=== PATIENT | female | born 1995 | race Caucasian/White ===

== ENCOUNTER 2018-06-02 16:22 | Emergency (ER) | payer MEDICAID, SELFPAY ==
[2018-06-02 16:23] VITALS: BP 137/91; PULSE 80; RESP 16; TEMP 36.6; O2SAT 98; BMI 44.6
--- NOTE | 2018-06-02 16:44 | ED.VISSUMM ---
- ER Visit Summary Date of Service: 06/02/18 Chief Complaint: Right forearm burn History of Present Illness: The patient is a 22 F who is in a [employer] student. She reports that just prior to coming emergency department she had opened her oven which was 450? and the cat went to jump on this. She used her right arm to block him. However, she burned her right forearm. She has a burning pain that is 10 out of 10 severity. It is worsened by nothing and relieved by cold. She denies any paresthesias distally. Physical Examination: Vitals: Stable. Afebrile. General: Well-nourished and well-developed. Head: Normocephalic atraumatic. Neck: Supple, no lymphadenopathy. No JVD. Nontender. Cardiovascular: Regular rate and rhythm. No murmurs. Respiratory: No respiratory distress. Clear to auscultation bilaterally. Abdominal: Soft, nontender, nondistended, normal bowel sounds. No guarding, rebound, or peritoneal signs. Back: Nontender. Extremities: 10 cm x 6 cm first-degree burn to the medial side of her right forearm with approximately 4 similar by 2 cm second-degree burn in the second and her of this. She is neurovascular intact distally. Skin: Normal color, no rash. Neurologic: Alert and oriented ?3. Cranial nerves II through XII are intact. Normal strength and sensation. Psych: Normal affect. Emergency Department Course and Treatment: Patient was treated with morphine IM. She had a sterile dressing placed. Treatment Plan: Patient will be discharged with [place] for pain. She is instructed to follow-up with Dr. Gusman in 2 days for a wound check. Return to the emergency department for any worsening symptoms. Disposition: To home in improved and stable condition. Impression: 1. Second-degree burn right forearm. This note was generated with [employer] dictation software. It may contain incorrect words, spelling, and punctuation that were not noted in review of the chart prior to signing ED Disposition - Plan for ED Patient: Chief Complaint: Burn Instructions: ED Burn Thermal D 2nd Dressing Prescriptions: Naproxen [Naprosyn] 500 mg PO BID PRN #14 tablet Hydrocodone/Acetaminophen [[place] 5-325 Tablet] 1 - 2 each PO 4X/DAY PRN 3 Days #12 tablet PRN Reason: Pain Referrals: Cleopatra Gusman DO [STAFF PHYSICIAN] - 2 Days for wound check
--- NOTE | 2018-06-02 16:49 | ED.DCSUM_ITS ---
- ER Visit Summary Date of Service: 06/02/18 Chief Complaint: Right forearm burn History of Present Illness: The patient is a 22 F who is in a [employer] student. She reports that just prior to coming emergency department she had opened her oven which was 450? and the cat went to jump on this. She used her right arm to block him. However, she burned her right forearm. She has a burning pain that is 10 out of 10 severity. It is worsened by nothing and relieved by cold. She denies any paresthesias distally. Physical Examination: Vitals: Stable. Afebrile. General: Well-nourished and well-developed. Head: Normocephalic atraumatic. Neck: Supple, no lymphadenopathy. No JVD. Nontender. Cardiovascular: Regular rate and rhythm. No murmurs. Respiratory: No respiratory distress. Clear to auscultation bilaterally. Abdominal: Soft, nontender, nondistended, normal bowel sounds. No guarding, rebound, or peritoneal signs. Back: Nontender. Extremities: 10 cm x 6 cm first-degree burn to the medial side of her right forearm with approximately 4 similar by 2 cm second-degree burn in the second and her of this. She is neurovascular intact distally. Skin: Normal color, no rash. Neurologic: Alert and oriented ?3. Cranial nerves II through XII are intact. Normal strength and sensation. Psych: Normal affect. Emergency Department Course and Treatment: Patient was treated with morphine IM. She had a sterile dressing placed. Treatment Plan: Patient will be discharged with [place] for pain. She is instructed to follow-up with Dr. Gusman in 2 days for a wound check. Return to the emergency department for any worsening symptoms. Disposition: To home in improved and stable condition. Impression: 1. Second-degree burn right forearm. This note was generated with [employer] dictation software. It may contain incorrect words, spelling, and punctuation that were not noted in review of the chart prior to signing ED Disposition - Plan for ED Patient: Chief Complaint: Burn Instructions: ED Burn Thermal D 2nd Dressing Prescriptions: Naproxen [Naprosyn] 500 mg PO BID PRN #14 tablet Hydrocodone/Acetaminophen [[place] 5-325 Tablet] 1 - 2 each PO 4X/DAY PRN 3 Days # 12 tablet PRN Reason: Pain Referrals: Cleopatra Gusman DO [STAFF PHYSICIAN] - 2 Days for wound check
[2018-06-02] MEDS: morphine 10 MG/ML Syringe 8 MG IM (17:22)
== END 2018-06-02 17:56 | disposition home or self-care (01) ==
PROVIDERS: Emergency Provider Emergency Medicine
DX: T22.211A Burn of second degree of right forearm, initial encounter (principal); X15.0XXA Contact with hot stove (kitchen), initial encounter; Y93.89 Activity, other specified; J45.909 Unspecified asthma, uncomplicated; Z79.899 Other long term (current) drug therapy
CPT/HCPCS: 96372; 99282

== ENCOUNTER 2019-01-19 07:04 | Emergency (ER) | payer MEDICAID, SELFPAY ==
[2019-01-19 07:05] VITALS: BP 120/72; PULSE 116; RESP 18; TEMP 38.2; O2SAT 99; BMI 45.3
--- NOTE | 2019-01-19 07:18 | ED.VIS.GEN ---
History of Present Illness Chief Complaint: Headache Detail of Chief Complaint: Nausea, vomiting and diarrhea Informant: Patient, Friend Onset: Days - Onset of illness 3 days ago Context: Sudden Onset Timing: Continuous Quality: Myalgias, arthralgias, intermittent abdominal pain Location: Generalized Current Severity: Moderate Maximum Severity: Severe Worsened by: Nothing in particular Relieved by: Nothing Associated Symptoms: Fever and chills and bifrontal headache Narrative: Patient is a 23-year-old who presents to the emerge department with bifrontal headache. Upon further questioning patient has been ill for the past 3 days with migratory generalized abdominal pain described as crampy with nausea, vomiting diarrhea. Patient does have history of irritable bowel syndrome. Patient is concerned because she got maneuver and unpasteurized milk in her mouth this weekend. She was ill apparently before that. She denies photophobia. She does complain of neck pain but does not have neck stiffness. She reports left ear pain. She also reports eye pain with redness. Patient states she had an asthma attack with significant coughing and passed out. She does report thirst, dry mouth and orthostatic symptoms. She denies ill contacts. She has not taken an antibiotic in the past month. She denies blood or mucus in her stool. She does report decreased urine output. She denies rash. Prior similar symptoms: No Recent Illness/Hospitalization: No - Past Medical History (1) History of irritable bowel syndrome Status: Acute Past Medical History - Allergies and Home Meds Allergies/Adverse Reactions: Allergies methylphenidate [From Ritalin] Allergy (Verified 01/19/19 07:07) Jarred Primary Care Physician: [facility] Doctor,Out of [NON-STAFF] - Surgical History: no surgical history Lives: With Family Smoking Status: Never smoker Alcohol: None Review of Systems General: Reports: Chills, Fever, Malaise, Subjective. Denies: Sweats, Weight loss Eyes: Reports: - - She denies photophobia.. Denies: Visual changes - bilaterally, Blurred Vision - bilaterally, Diplopia ENT: Reports: Left ear pain, Rhinorrhea. Denies: Right ear pain, Sore throat Cardiovascular: Denies: Chest pain, Palpitations Respiratory: Reports: Cough. Denies: Dyspnea, Sputum, Dyspnea on exertion, Orthopnea, Paroxysmal nocturnal dyspnea Gastrointestinal: Reports: Abdominal pain, Nausea, Vomiting, Diarrhea. Denies: Melena, Hematochezia Genitourinary: Denies: Dysuria, Hematuria, Frequency Musculoskeletal: Reports: Myalgias, Arthralgias, Neck pain, Back pain. Denies: Swelling Skin: Denies: Rash Neurological: Reports: Headache, Weakness. Denies: Parasthesia, Numbness Hematologic: Denies: Easy bruising, Easy bleeding Allergy: Denies: Uticaria Physical Exam Vital Signs/Narrative: Vital Signs Temp Pulse Resp BP Pulse Ox 01/19/19 07:05 100.7 F H 116 H 18 120/72 99 Inital Vital Signs reviewed: Yes General: Well nourished, Well developed, Obese, - - Patient appears uncomfortable and ill. She does not appear toxic or in significant distress. Head: Normocephalic, Atraumatic Eyes: Perrl, EOMI, - - Subconjunctival hemorrhage noted right eye temporal side. Negative for: Pale conjunctiva, Scleral icterus ENT: TM's clear, Dry mucous membranes. Negative for: No rhinorrhea, Sinus tenderness Neck: Supple, Nontender, No lymphadenopathy, No JVD Cardiovascular: Regular rhythm, No murmurs, Normal S1, Normal S2, Tachycardia Respiratory: No distress, CTA bilaterally, Chest nontender Abdomen: Soft, Nontender, Nondistended, Normal bowel sounds, No masses Back: Nontender, Normal Inspection Extremities: Nontender, No edema Skin: Normal color, No rash. Negative for: Cyanosis, Jaundice Neurological: Alert, Oriented x3, Cranial nerves II-XII grossly intact, Normal Strength, Normal Sensation Psychological: Normal affect Diagnostic/Tx/Re-eval - Rhythm Strip Rhythm Strip: Sinus Rhythm Rate: 110 Ectopy: None - Medical Decision Making With onset of illness 3 days ago with significant amount of vomiting diarrhea and patient reported orthostatic symptoms will obtain basic medical panel to assess potassium, CO2 and anion gap as well as renal function. She received 1 L of normal saline wide open. She will receive Zofran for her nausea and vomiting. Will then administer Bentyl for the cramping pain and Imodium for diarrhea. Patient also received Tylenol for her elevated temperature. In light of her complaint of myalgias, arthralgias, nasal congestion, cough and nausea with vomiting diarrhea findings are consistent with viral illness and would explain patient's headache. Patient was informed of results. She did receive Tylenol, Bentyl and Imodium. She has passed p.o. challenge. She was informed in light of her constellation of symptoms that this represents a viral illness and that she may be ill for another 3 to 7 days. She does report improvement. ED Disposition - Plan for ED Patient: Disposition: Home or Assisted Living Diagnosis: Fever in adult, Systemic viral illness, Abdominal pain, vomiting, and diarrhea, Mild dehydration, Sinus tachycardia seen on rn cardiac Instructions: ED Viral Syndrome Prescriptions: Ondansetron [Zofran Odt] 4 mg PO Q8H PRN PRN #5 tablet PRN Reason: Nausea Dicyclomine HCl [Bentyl] 20 mg PO TIDAC #10 capsule Referrals: [facility] Doctor,Out of [NON-STAFF] - 1 Week if not improving Additional Instructions: You may be ill for another 7 days. Take Imodium for diarrhea. You were prescribed Zofran for nausea and take Tylenol for elevated temperature. Your prescription was electronically transmitted to [facility] pharmacy located on [address] your designated pharmacy of choice.
--- NOTE | 2019-01-19 07:23 | ED.DCSUM_ITS ---
History of Present Illness Chief Complaint: Headache Detail of Chief Complaint: Nausea, vomiting and diarrhea Informant: Patient, Friend Onset: Days - Onset of illness 3 days ago Context: Sudden Onset Timing: Continuous Quality: Myalgias, arthralgias, intermittent abdominal pain Location: Generalized Current Severity: Moderate Maximum Severity: Severe Worsened by: Nothing in particular Relieved by: Nothing Associated Symptoms: Fever and chills and bifrontal headache Narrative: Patient is a 23-year-old who presents to the emerge department with bifrontal headache. Upon further questioning patient has been ill for the past 3 days with migratory generalized abdominal pain described as crampy with nausea, vomiting diarrhea. Patient does have history of irritable bowel syndrome. Patient is concerned because she got maneuver and unpasteurized milk in her mouth this weekend. She was ill apparently before that. She denies photophobia. She does complain of neck pain but does not have neck stiffness. She reports left ear pain. She also reports eye pain with redness. Patient states she had an asthma attack with significant coughing and passed out. She does report thirst, dry mouth and orthostatic symptoms. She denies ill contacts. She has not taken an antibiotic in the past month. She denies blood or mucus in her stool. She does report decreased urine output. She denies rash. Prior similar symptoms: No Recent Illness/Hospitalization: No - Past Medical History (1) History of irritable bowel syndrome Status: Acute Past Medical History - Allergies and Home Meds Allergies/Adverse Reactions: Allergies methylphenidate [From Ritalin] Allergy (Verified 01/19/19 07:07) Jarred Primary Care Physician: [facility] Doctor,Out of [NON-STAFF] - Surgical History: no surgical history Lives: With Family Smoking Status: Never smoker Alcohol: None Review of Systems General: Reports: Chills, Fever, Malaise, Subjective. Denies: Sweats, Weight loss Eyes: Reports: - - She denies photophobia.. Denies: Visual changes - bilaterall y, Blurred Vision - bilaterally, Diplopia ENT: Reports: Left ear pain, Rhinorrhea. Denies: Right ear pain, Sore throat Cardiovascular: Denies: Chest pain, Palpitations Respiratory: Reports: Cough. Denies: Dyspnea, Sputum, Dyspnea on exertion, Orthopnea, Paroxysmal nocturnal dyspnea Gastrointestinal: Reports: Abdominal pain, Nausea, Vomiting, Diarrhea. Denies: Melena, Hematochezia Genitourinary: Denies: Dysuria, Hematuria, Frequency Musculoskeletal: Reports: Myalgias, Arthralgias, Neck pain, Back pain. Denies: Swelling Skin: Denies: Rash Neurological: Reports: Headache, Weakness. Denies: Parasthesia, Numbness Hematologic: Denies: Easy bruising, Easy bleeding Allergy: Denies: Uticaria Physical Exam Vital Signs/Narrative: Vital Signs Temp Pulse Resp BP Pulse Ox 01/19/19 07:05 100.7 F H 116 H 18 120/72 99 Inital Vital Signs reviewed: Yes General: Well nourished, Well developed, Obese, - - Patient appears uncomfortable and ill. She does not appear toxic or in significant distress. Head: Normocephalic, Atraumatic Eyes: Perrl, EOMI, - - Subconjunctival hemorrhage noted right eye temporal side. Negative for: Pale conjunctiva, Scleral icterus ENT: TM's clear, Dry mucous membranes. Negative for: No rhinorrhea, Sinus tenderness Neck: Supple, Nontender, No lymphadenopathy, No JVD Cardiovascular: Regular rhythm, No murmurs, Normal S1, Normal S2, Tachycardia Respiratory: No distress, CTA bilaterally, Chest nontender Abdomen: Soft, Nontender, Nondistended, Normal bowel sounds, No masses Back: Nontender, Normal Inspection Extremities: Nontender, No edema Skin: Normal color, No rash. Negative for: Cyanosis, Jaundice Neurological: Alert, Oriented x3, Cranial nerves II-XII grossly intact, Normal Strength, Normal Sensation Psychological: Normal affect Diagnostic/Tx/Re-eval - Rhythm Strip Rhythm Strip: Sinus Rhythm Rate: 110 Ectopy: None - Medical Decision Making With onset of illness 3 days ago with significant amount of vomiting diarrhea and patient reported orthostatic symptoms will obtain basic medical panel to assess potassium, CO2 and anion gap as well as renal function. She received 1 L of normal saline wide open. She will receive Zofran for her nausea and vomiting . Will then administer Bentyl for the cramping pain and Imodium for diarrhea. Patient also received Tylenol for her elevated temperature. In light of her complaint of myalgias, arthralgias, nasal congestion, cough and nausea with vomiting diarrhea findings are consistent with viral illness and would explain patient's headache. Patient was informed of results. She did receive Tylenol, Bentyl and Imodium. She has passed p.o. challenge. She was informed in light of her constellation of symptoms that this represents a viral illness and that she may be ill for another 3 to 7 days. She does report improvement. 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 Take Imodium for diarrhea. You were prescribed Zofran for nausea and take Tylenol for elevated temperature. Your prescription was electronically transmitted to [facility] pharmacy located on [address] your designated pharmacy of choice.
[2019-01-19] MEDS: 0.9% Normal Saline 1,000 ML 1000 ML IV (07:30)
[2019-01-19] MEDS: Ondansetron 4 MG/2 ML Vial IV (07:30)
[2019-01-19 07:51] LABS: Anion Gap 8 (5-15); BUN 8 mg/dL (7-18); BUN/Creat Ratio 8.2 RATIO (10-20); Calcium,Total 8.6 mg/dL (8.5-10.1); Chloride 102 mmol/L (98-107); Creatinine, Serum 0.97 mg/dL (0.55-1.02); EST Glomerular Filtration Rate 76 mL/min (>60); Est Glom Filt Rate - Afr Amer 92 mL/min (>60); Estimated Creatinine Clearance 79.22 ml/min; Glucose 121 mg/dL (74-106); Potassium 3.4 mmol/L (3.5-5.1); Sodium Level 135 mmol/L (136-145)
[2019-01-19] MEDS: Acetaminophen 325 MG Tablet 650 MG PO (08:32)
[2019-01-19] MEDS: Dicyclomine 10 MG Capsule 20 MG PO (08:32)
[2019-01-19] MEDS: Loperamide 2 MG Capsule 4 MG PO (08:32)
[2019-01-19 09:06] VITALS: BP 123/63; PULSE 71; RESP 18; O2SAT 99
== END 2019-01-19 09:08 | disposition home or self-care (01) ==
PROVIDERS: Emergency Provider Emergency Medicine
DX: B34.9 Viral infection, unspecified (principal); R10.84 Generalized abdominal pain; R11.2 Nausea with vomiting, unspecified; R19.7 Diarrhea, unspecified; E86.0 Dehydration; R00.0 Tachycardia, unspecified
CPT/HCPCS: 80048; 96361; 96374; 99284; J7030; A4216; J2405